=== PATIENT | male | born 1965 | race Caucasian/White ===

== ENCOUNTER 2017-12-23 15:28 | Emergency (ER) | payer OTHER ==
[2017-12-23] MEDS: MORPHINE SULFATE 10 MG/ML VIAL. IM ×2 (16:25→20:05)
[2017-12-23] MEDS: GABAPENTIN 400 MG CAPSULE. PO (18:41)
== END 2017-12-23 20:00 | disposition home or self-care (01) ==
LOC: ER 15:28
DX: G89.29 Other chronic pain (principal); M54.2 Cervicalgia; R20.2 Paresthesia of skin; I10 Essential (primary) hypertension; J44.9 Chronic obstructive pulmonary disease, unspecified; Z98.1 Arthrodesis status; F12.10 Cannabis abuse, uncomplicated
CPT/HCPCS: 72052; 72141; 96372; 99284-25; J2270